=== PATIENT | female | born 1945 | race Caucasian/White ===

== ENCOUNTER → 2017-11-30 | Outpatient (CLI) | payer MEDICARE | END | disposition home or self-care (01) | LOC: KCIC MAMMO 12:54 | DX: R92.1 Mammographic calcification found on diagnostic imaging of breast (principal); N63.10 Unspecified lump in the right breast, unspecified quadrant | CPT/HCPCS: 76641; 77066; G0279 ==

== ENCOUNTER → 2017-12-05 | Outpatient (CLI) | payer MEDICARE | END | disposition home or self-care (01) | LOC: KCIC CT 13:40 | DX: N63.10 Unspecified lump in the right breast, unspecified quadrant (principal); I71.2 Thoracic aortic aneurysm, without rupture; I25.10 Atherosclerotic heart disease of native coronary artery without angina pectoris; M47.894 Other spondylosis, thoracic region; R91.8 Other nonspecific abnormal finding of lung field; Z72.0 Tobacco use | CPT/HCPCS: 71250 ==

== ENCOUNTER → 2017-12-14 | Outpatient (CLI) | payer MEDICARE | END | disposition home or self-care (01) | LOC: US 08:33 | DX: D05.11 Intraductal carcinoma in situ of right breast (principal) | CPT/HCPCS: 19081; 76942; 77065; 88305; 88361; C1713 ==

== ENCOUNTER → 2017-12-27 | Outpatient (CLI) | payer MEDICARE ==
[~2017-12-27] MED LIST: CONTRAST GIVEN MC
[2017-12-27] MEDS: IOHEXOL 300 MG/ML 100ML VIAL. IV (08:51)
== END | disposition home or self-care (01) ==
LOC: CT 08:15
DX: I71.2 Thoracic aortic aneurysm, without rupture (principal); N63.10 Unspecified lump in the right breast, unspecified quadrant; M25.78 Osteophyte, vertebrae
CPT/HCPCS: 71275

== ENCOUNTER 2017-12-28 07:42 | Observation (INO) | payer MEDICARE ==
[~2017-12-28 07:42] MED LIST changes: -CONTRAST GIVEN MC; +LIDOCAINE 1% PF 2 ML VIAL. ID; +ONDANSETRON PF 4 MG/2 ML VIAL. IV; +PROCHLORPERAZINE 10 MG/2 ML VIAL. IV; +fentaNYL PF VIAL 100 MCG/2 ML VIAL IV
[2017-12-28] MEDS ORDERED: MIDAZOLAM HCL/PF 2 MG/2 ML VIAL. (08:25)
[2017-12-28] MEDS ORDERED: fentaNYL PF VIAL 100 MCG/2 ML VIAL ×3 (08:25→10:38)
[2017-12-28] MEDS ORDERED: SEVOFLURANE 61 TO 120 MINUTES. IH (08:26)
[2017-12-28] MEDS ORDERED: ONDANSETRON PF 4 MG/2 ML VIAL. (08:26)
[2017-12-28] MEDS ORDERED: PROPOFOL 20 ML IV (08:26)
[2017-12-28] MEDS ORDERED: DEXAMETHASONE SOD PHOS 20 MG/5 ML VIAL. (08:26)
[2017-12-28] MEDS: IV RINGERS,LACTATED 1000ML 1,000 ML IV (08:27)
[2017-12-28] MEDS: SCOPOLAMINE 1.5MG PATCH. TD (08:28)
[2017-12-28] MEDS: LIDOCAINE WITH 8.4% SOD BICARB 3 ML DISP.SYRIN. INJ (09:00)
[2017-12-28] MEDS: BUPIVACAINE-EPI 0.25%-1:200000 50 ML VIAL. INJ (09:54)
[2017-12-28] MEDS: ISOSULFAN BLUE 50 MG/5 ML VIAL. SQ (09:54)
[2017-12-28] MEDS ORDERED: ONDANSETRON PF 4 MG/2 ML VIAL. IV (11:45)
[2017-12-28] MEDS ORDERED: 0.9 % SODIUM CHLORIDE 10 ML DISP.SYRIN. IV (11:45)
[2017-12-28] MEDS ORDERED: oxyCODONE/APAP 5/325 1 TAB TABLET PO (11:45)
[2017-12-28] MEDS ORDERED: MORPHINE SULFATE 4 MG/ML DISP.SYRIN. IV (11:45)
[2017-12-28] MEDS: fentaNYL PF VIAL 100 MCG/2 ML VIAL IV ×4 (11:57→12:34)
[2017-12-28] MEDS: MORPHINE SULFATE 4 MG/ML DISP.SYRIN. IV ×2 (12:13→12:20)
[2017-12-28] MEDS: IV DEXTROSE 5%-LACT RINGERS 1,000 ML IV ×2 (12:58→23:41)
[2017-12-28] MEDS: KETOROLAC 15 MG/ML VIAL. IV ×3 (12:58→23:35)
[2017-12-28] MEDS: oxyCODONE/APAP 5/325 1 TAB TABLET PO ×3 (15:11→22:16)
[2017-12-29] MEDS: oxyCODONE/APAP 5/325 1 TAB TABLET PO ×3 (04:04→09:38)
[2017-12-29] MEDS: KETOROLAC 15 MG/ML VIAL. IV (05:34)
== END 2017-12-29 09:52 | disposition home or self-care (01) ==
LOC: NM 07:42 → 4 SOUTHEST 12:00
DX: C50.911 Malignant neoplasm of unspecified site of right female breast (principal)
CPT/HCPCS: 19303; 38792; 88307; 88342; 96374; 96376; A9541; G0378; G0379; J0690; J1100; J1885; J2250; J2270; J2405; J2704; J3010; J7120; Q9968

== ENCOUNTER → 2018-02-16 | Outpatient (CLI) | payer MEDICARE | END | disposition home or self-care (01) | LOC: KCIC DEXA 12:38 | DX: M85.88 Other specified disorders of bone density and structure, other site (principal); M81.8 Other osteoporosis without current pathological fracture; Z78.0 Asymptomatic menopausal state; Z85.3 Personal history of malignant neoplasm of breast | CPT/HCPCS: 77080 ==

== ENCOUNTER → 2018-03-09 | Outpatient (CLI) | payer MEDICARE ==
[~2018-03-09] MED LIST changes: +LIDOCAINE 1% Multi-Dose 50 ML VIAL. INJ; -LIDOCAINE 1% PF 2 ML VIAL. ID; -ONDANSETRON PF 4 MG/2 ML VIAL. IV; -PROCHLORPERAZINE 10 MG/2 ML VIAL. IV; -fentaNYL PF VIAL 100 MCG/2 ML VIAL IV
== END | disposition home or self-care (01) ==
LOC: US 07:33
DX: N61.0 Mastitis without abscess (principal); Z90.11 Acquired absence of right breast and nipple; Z88.8 Allergy status to other drugs, medicaments and biological substances; Z91.040 Latex allergy status; Z98.49 Cataract extraction status, unspecified eye; Z96.1 Presence of intraocular lens; E66.9 Obesity, unspecified; Z90.710 Acquired absence of both cervix and uterus; Z90.79 Acquired absence of other genital organ(s); Z90.722 Acquired absence of ovaries, bilateral; Z87.440 Personal history of urinary (tract) infections; M17.11 Unilateral primary osteoarthritis, right knee; F17.210 Nicotine dependence, cigarettes, uncomplicated; Z83.3 Family history of diabetes mellitus; Z80.42 Family history of malignant neoplasm of prostate; Z82.49 Family history of ischemic heart disease and other diseases of the circulatory system
CPT/HCPCS: 19000; 76641; 76942; 87071; 87075; 87205

== ENCOUNTER → 2018-04-27 | Outpatient (CLI) | payer MEDICARE | END | disposition home or self-care (01) | LOC: US 14:17 | DX: R22.2 Localized swelling, mass and lump, trunk (principal); S20.211A Contusion of right front wall of thorax, initial encounter; X58.XXXA Exposure to other specified factors, initial encounter; Y93.89 Activity, other specified; Y92.89 Other specified places as the place of occurrence of the external cause; Y99.8 Other external cause status | CPT/HCPCS: 76604 ==

== ENCOUNTER 2018-05-10 08:29 | Outpatient (CLI) | payer MEDICARE ==
[2018-05-10 08:59] LABS: ADD MAN DIFF? NO
[2018-05-10 09:01] LABS: BASO # 0.1 x10^3/uL (0.0-0.2); BASO % 1 % (0-3); EOS # 0.2 x10^3/uL (0.0-0.7); EOS % 2 % (0-3); HEMATOCRIT 44.6 % (36.0-47.0); HEMOGLOBIN 15.2 g/dL (12.0-15.5); LYMPH # 2.9 x10^3/uL (1.0-4.8); LYMPH % 25 % (24-48); MEAN CORPUSCULAR HEMOGLOBIN 34 pg (25-35); MEAN CORPUSCULAR HGB CONC 34 g/dL (31-37); MEAN CORPUSCULAR VOLUME 98 fL (79-100); MONO # 0.5 x10^3/uL (0.0-1.1); MONO % 5 % (0-9); NEUT # 7.9 x10^3uL (1.8-7.7); NEUT % 68 % (31-73); PLATELET COUNT 267 x10^3/uL (140-400); RED BLOOD COUNT 4.53 x10^6/uL (3.50-5.40); RED CELL DISTRIBUTION WIDTH 15.2 % (11.5-14.5); WHITE BLOOD COUNT 11.6 x10^3/uL (4.0-11.0)
[2018-05-10 09:13] LABS: PARTIAL THROMBOPLASTIN TIME 24 SEC (24-38); PROTHROMBIN TIME PATIENT 12.5 SEC (11.7-14.0)
[2018-05-10] MEDS ORDERED: LIDOCAINE WITH 8.4% SOD BICARB 3 ML DISP.SYRIN. (09:44)
[2018-05-10] MEDS: LIDOCAINE WITH 8.4% SOD BICARB 3 ML DISP.SYRIN. INJ (10:38)
== END 2018-05-10 11:15 | disposition home or self-care (01) ==
LOC: INTRAD 08:29
DX: L76.34 Postprocedural seroma of skin and subcutaneous tissue following other procedure (principal); G43.909 Migraine, unspecified, not intractable, without status migrainosus; E66.9 Obesity, unspecified; Z68.41 Body mass index [BMI] 40.0-44.9, adult; Z91.040 Latex allergy status; Z85.3 Personal history of malignant neoplasm of breast; Z90.710 Acquired absence of both cervix and uterus; Z90.79 Acquired absence of other genital organ(s); Z90.721 Acquired absence of ovaries, unilateral; Z87.440 Personal history of urinary (tract) infections; M17.11 Unilateral primary osteoarthritis, right knee; F17.210 Nicotine dependence, cigarettes, uncomplicated; Z98.890 Other specified postprocedural states; Z80.42 Family history of malignant neoplasm of prostate; Z83.3 Family history of diabetes mellitus; Z82.49 Family history of ischemic heart disease and other diseases of the circulatory system; Z88.8 Allergy status to other drugs, medicaments and biological substances; Z79.899 Other long term (current) drug therapy; Z98.42 Cataract extraction status, left eye; Z98.41 Cataract extraction status, right eye; Z96.1 Presence of intraocular lens; Z79.01 Long term (current) use of anticoagulants; Y83.8 Other surgical procedures as the cause of abnormal reaction of the patient, or of later complication, without mention of misadventure at the time of the procedure
CPT/HCPCS: 10030; 36415; 85025; 85610; 85730; 87071; 87075; A4215; C1729; C1892; C1894

== ENCOUNTER → 2018-12-28 | Outpatient (CLI) | payer BC, MEDICARE ==
[2018-05-10 11:10] VITALS: BP 152/82
[~2018-12-28] MED LIST changes: +ACET325T9 PO; +BETA15CR4 TP; +CEPH-264 PO; +CETI10TA22 PO; +DAPS25TA PO; +DOXE10CA PO; +GABA600T7 PO; +IBUP-1027 PO; -LIDOCAINE 1% Multi-Dose 50 ML VIAL. INJ; +OXYC1TAB7 PO; +PRED20TA PO
--- NOTE | 2018-12-28 12:41 | KCIC ---
Left breast diagnostic digital mammograms with 3-D tomosynthesis: Reason for examination: History right breast cancer with mastectomy. Follow-up left breast. Comparison is made to previous studies dated 11/30/2017 and 02/13/2015. Left breast mammograms in CC and oblique projections were obtained with 2-D imaging and 3-D tomosynthesis imaging on a Siemens Inspiration unit and reviewed on the workstation. Interpretation was made with the benefit of CAD. The skin and nipple show no abnormalities. No abnormal axillary lymph nodes are seen. The breast parenchyma shows scattered fatty and fibroglandular density. (Breast density: Category B.) There continues to be a nodular parenchymal density presents at the anterior central 12:00 position of the left breast which is unchanged. There are no new dominant masses, suspicious calcifications or architectural distortion. Benign calcifications are present. Impression: No evidence of malignancy. Recommend routine screening. BI-RAD Category 2: Benign. "Our facility is accredited by the [employer] Mammography Program." This patient's information has been entered into a reminder system for the patient to be notified with the results of her examination and a target date for the next mammogram. Electronically signed by: Faviola Vincent MD (12/28/2018 12:39 PM) [id number]
== END | disposition home or self-care (01) ==
LOC: KCIC MAMMO 10:26
PROVIDERS: ATTEND Internal Medicine Hematology & Oncology
DX: Z08 Encounter for follow-up examination after completed treatment for malignant neoplasm (principal); Z85.3 Personal history of malignant neoplasm of breast; Z90.11 Acquired absence of right breast and nipple
CPT/HCPCS: 77065; G0279; 77061

== ENCOUNTER → 2021-03-09 | Outpatient (CLI) | payer MEDICARE ==
[2018-05-10 11:10] VITALS: BP 152/82
[~2021-03-09] MED LIST changes: +BUPIVACAINE MPF 0.5% 10 ML VIAL. INT ART ONE; -CETI10TA22 PO; +CETI10TA74 PO; +IOHEXOL 300 MG/ML 50 ML VIAL. INT ART ONE; +LIDOCAINE 1% Multi-Dose 20 ML VIAL. ID ONE; +methylPREDNISolone ACETATE 40 MG/ML VIAL. INT ART ONE
--- NOTE | 2021-03-09 14:01 | KCIC ---
EXAM: Fluoroscopic guided therapeutic right hip injection. HISTORY: Pain. TECHNIQUE: The risks of the procedure were discussed with the patient and written and verbal consent was obtained. A time out was performed. Fluoroscopic imaging of the right hip was performed and a sit e overlying the joint space was selected for needle entry. The skin overlying this region was sterile ly prepped, draped and infiltrated with 1% lidocaine. A spinal needle was then advanced into the join t space with fluoroscopic guidance. Appropriate needle tip positioning was confirmed with injection o f 3 cc Isovue 300 contrast. Subsequently, a solution containing 4 cc lidocaine, 4 cc bupivacaine and 80 cc Depo-Medrol was injected into the joint space. Fluoroscopic images demonstrate intraarticular a ccumulation of contrast. The needle was removed and a sterile bandage was placed at the needle entry site. The patient tolerated the procedure without difficulty and was discharged in stable condition. The total fluoroscopy time was 11 seconds. A single fluoroscopic image was obtained. IMPRESSION: Successful fluoroscopic guided therapeutic right hip injection. Electronically signed by: Ada Lim MD (03/09/2021 1:58 PM) [id number]
== END | disposition home or self-care (01) ==
LOC: KCIC 12:22
PROVIDERS: ATTEND Orthopaedic Surgery
DX: M16.11 Unilateral primary osteoarthritis, right hip (principal); E66.9 Obesity, unspecified; F17.210 Nicotine dependence, cigarettes, uncomplicated; Z85.3 Personal history of malignant neoplasm of breast; Z90.710 Acquired absence of both cervix and uterus; Z98.890 Other specified postprocedural states; Z87.440 Personal history of urinary (tract) infections; Z91.040 Latex allergy status; Z88.8 Allergy status to other drugs, medicaments and biological substances; Z79.899 Other long term (current) drug therapy
CPT/HCPCS: 20610; 77002; J1030; J3490; Q9967